=== PATIENT | female | born 1975 | race Caucasian/White ===

== ENCOUNTER → 2017-12-26 | Emergency (ER) | payer OTHER ==
[~2017-12-26] VITALS: Ht 152.4 cm; Wt 99.8 kg
[~2017-12-26] MED LIST: GILTUSS TR TAB1 EACH PO; ZEGERID 20 MG C1 CAP
== END | disposition home or self-care (01) ==
LOC: ER 10:59
DX: R05 Cough (principal); J00 Acute nasopharyngitis [common cold]